=== PATIENT | male | born 2000 | race Caucasian/White ===

== ENCOUNTER 2020-09-30 11:55 | Emergency (ER) | payer SELFPAY ==
[~2020-09-30] VITALS: Ht 165.1 cm; Wt 150.0 kg
[2020-09-30 13:02] VITALS: BP 134/89
== END 2020-09-30 13:02 | disposition home or self-care (01) ==
LOC: ER 12:23
DX: S01.81XD Laceration without foreign body of other part of head, subsequent encounter (principal); X58.XXXD Exposure to other specified factors, subsequent encounter
CPT/HCPCS: 99281